=== PATIENT | female | born 1960 | race Caucasian/White ===

== ENCOUNTER 2023-08-15 10:59 | Outpatient (CLI) | payer BC, SELFPAY ==
--- NOTE | ~2023-08-15 | DEXA_ITS ---
Bone Density Report Name: SOPHY BOYD Age: 62 Sex: Female Ethnicity: White Date of : 1960 Indication: postmenopausal; screening for osteoporosis; parental hip fracture; prior fracture; Referring Provider: DIDIER WELLS Study: Bone densitometry was performed. Exam Date: August 15, 2023 Accession number: [id number] Bone Density: Region BMD T-score Z-score Classification AP Spine(L1-L4) 0.819 -2.1 -0.6 Osteopenia Femoral Neck (Left) 0.514 -3.0 -1.7 Osteoporosis Total Hip (Left) 0.697 -2.0 -1.0 Osteopenia Femoral Neck (Right) 0.532 -2.9 -1.5 Osteoporosis Total Hip (Right) 0.691 -2.1 -1.0 Osteopenia Total Hip Mean 0.694 -2.1 -1.0 Osteopenia World Health Organization criteria for BMD impression classify patients as: Normal (T-score at or above -1.0), Osteopenia (T-score between -1.0 and -2.5), or Osteoporosis (T-score at or below -2.5). 10-year Fracture Risk: FRAX not reported because: Some T-score for Spine Total or Hip Total or Femoral Neck at or below -2.5 Clinical Information Provided by Patient: Has had a low trauma fracture Parent has had a hip fracture Patient maximum height was 65.5 Menopause Age: 43 Drinks caffeinated beverages Onset of menses at age 14 Number of children 0 Impression: The patient has established osteoporosis, based on the Left Femoral Neck T-score and the existence of a prior fracture. The patient has risk factors, including: parental hip fracture, previous fracture. Discussion: HIGH RISK OF FRACTURE. BONE DENSITY IS UNDESIRABLY LOW AT ONE OR MORE SKELETAL SITES, CONSISTENT WITH POSTMENOPAUSAL OSTEOPOROSIS. This patient's lowest T-score, in a patient who has previously fractured, meets the World Health Organization's (WHO) criteria for severe osteoporosis. In untreated patients, the risk of osteoporotic fracture increases approximately two-fold for each 1.0 SD decrease in T-score. Low bone density is not the only risk factor for fracture; also consider factors such as patient's age, frailty or poor health, risk of falling, risk of injury, previous osteoporotic fracture, family history of osteoporosis, cigarette smoking, low body weight, etc. Not everyone with low bone mineral density has osteoporosis; osteomalacia and other metabolic bone disorders should also be considered. Patients who have osteoporosis should be evaluated for specific diseases and conditions (secondary causes) that may cause or contribute to bone loss. The [place] [employer]ocrinologists (AACE) and National Osteoporosis Foundation (NOF) recommend pharmacologic intervention for all postmenopausal women whose T-score is in this range. The patient should follow a healthful lifestyle (good nutrition with adequate calcium and vitamin D, and appropriate weight-bearing exercise).
== END 2023-08-15 11:00 | disposition home or self-care (01) ==
LOC: ANHIMG 11:05
PROVIDERS: Visit Provider Obstetrics & Gynecology
DX: Z78.0 Asymptomatic menopausal state (principal); M81.0 Age-related osteoporosis without current pathological fracture; M85.89 Other specified disorders of bone density and structure, multiple sites
CPT/HCPCS: 77080

== ENCOUNTER 2023-10-02 15:43 | Outpatient (CLI) | payer BC, SELFPAY ==
--- NOTE | ~2023-10-02 | MM_ITS ---
EXAMINATION: MM screening martin BI w eleazar HISTORY: Screening mammogram TECHNIQUE: Craniocaudal and mediolateral oblique 3-D tomosynthesis images were obtained and synthetic 2-D images were generated. CAD analysis was submitted and interpreted. COMPARISON: No prior mammogram is available for comparison at this institution. BREAST PARENCHYMAL COMPOSITION: There are scattered areas of fibroglandular density. FINDINGS: There is no evidence of suspicious mass, calcification, or architectural distortion to sugg est malignancy in either breast. IMPRESSION: 1. No mammographic evidence of malignancy. 2. Recommend routine screening mammography in one year. BI-RADS Category 1: Negative Reviewed, dictated and finalized at location A. 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
== END 2023-10-02 15:44 | disposition home or self-care (01) ==
PROVIDERS: Visit Provider Obstetrics & Gynecology
DX: Z12.31 Encounter for screening mammogram for malignant neoplasm of breast (principal)
CPT/HCPCS: 77063; 77067

== ENCOUNTER 2025-06-23 16:02 | Outpatient (CLI) | payer BC, SELFPAY ==
--- NOTE | ~2025-06-23 | CT_ITS ---
EXAMINATION: CTA chest PE protocol DATE: 06/23/2025 17:16 CDT INDICATION: Tachycardia. Atypical chest pain. TECHNIQUE: Computed tomographic angiography (CTA) of the chest was performed with 100 mL Omnipaque-350 intravenous contrast. The dose-length product was 173.46 mGy-cm. Maximum intensity projection 3D-reconstructions of the aorta and other arteries were constructed by the technologist on a separate workstation. COMPARISON: None. FINDINGS: Normal caliber aorta without aneurysm or dissection. Study is technically adequate without evidence for pulmonary embolism. No thoracic lymphadenopathy. Heart size normal. No significant pleural or pericardial effusion. The upper abdomen is unremarkable. No focal airspace consolidation. No endobronchial lesions. No pneumothorax. Mild thoracic spondylosis. No acute osseous abnormality. No focal lytic or blastic lesions. IMPRESSION: 1. No acute cardiopulmonary disease. Reviewed, dictated and finalized at location O.
--- OUTSIDE RECORDS SUMMARY | 2025-06-23 14:20 | XMS_ITS | Encounter Summary ---
Author Organization [facility] Address [address] [place] [address] Care Team Providers Care Poultry Raiser Name Role Phone Geronimo Burgos DO Primary Care Provider + Reason for Referral * Imaging (Emergency) - Closed Specialty Diagnoses / Procedures Referred By Berenice ruiz Referred To Contact RADIOLOGY Diagnoses Tachycardia Atypical chest pain Procedures CTA CHEST Geronimo Burgos DO [address] [place] [address] Phone: tel: fax: Referral ID Status Reason Start Date Expiration Date Visits Re quested Visits Authorized [id number] Closed 06/23/2025 06/24/2026 1 1 Reason for Visit * Reason Comments Follow Up Patient is here for a 4 month follow up. Anxiety Osteoporosis Abnormal Lab Results Leukocytosis Encounter Details Date Type Department Care Team (Late st Contact Info) Description 06/23/2025 2:20 PM CDT Office Visit [facility] - [place] [address] [place] [address] Geronimo Burgos DO [address] [place] [address] Follow Up (Patient is here for a 4 month follow up.); Anxiety; Osteoporosis; Abnormal Lab Results (Leukocytosis) Social History Tobacco Use Types Packs/Day Years Used Date Smoking Tobacco: Never Passive Smoke Exposure: Past Smokeless Tobacco: Never Tobacco Cessation:Counseling Given: No Alcohol Use Standard Drinks/Week Comments Not Currently 0 (1 standard drink = 0.6 oz pur e alcohol) holidays/ on occasion PHQ-2 Answer Date Recorded Patient Health Questionnaire-2 Score 0 02/15/2025 Comments No Sex and Gender Information Value Date Recorded Sex Assigned at Female 02/15/2025 3:18 PM CDT Legal Sex Female 5:48 PM 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 [employer] Gender Identity Female 02/15/2025 3:18 PM CDT Sexual Orientation Not on file Occupation Industry Job Start Date Job End Date Not on file Not on file Not on file Not on file documented as of this encounter Last Filed Vital Signs Vital Sign Reading Time Taken Comments Blood Pressure 148/88 06/23/2025 2:35 PM CDT Pulse 102 06/23/2025 2:35 PM CDT Temperature 36.7 C (98.1 F) 06/23/2025 2:26 PM CDT Respiratory Rate - - Oxygen Saturation 98% 06/23/2025 2:26 PM CDT Inhaled Oxygen Concentration - - Weight 59.3 kg (130 lb 11.8 oz) 06/23/2025 2:26 PM CDT Height 165.1 cm (5' 5) 06/23/2025 2:26 PM CDT Body Mass Index 21.76 06/23/2025 2:26 PM CDT documented in this encounter Progress Notes * Geronimo Burgos, - 06/23/2025 2:20 PM CDTAssociated Order(s): ECG Review/Interpret Only Post-Procedure Diagnose(s): Tachycardia; Atypical chest pain Images from the original note were not included. GENERAL OFFICE VISIT Encounter Date: 06/23/2025 Chief Complaint: 64-year-old female presents for Follow Up (Patient is here for a 4 month follow up.), Anxiety, Osteoporosis, and Abnormal Lab Results (Leukocytosis) HPI: Pt noted chest pain that occurred yesterday with a heat sensation and atypical sensation in her jaw. It has occurred at rest but anxious at the time. Pt's BP and HR is elevated today. She states her HR has been elevated for the past week. She states she has noticed some PVC's on her assessment. It has done this about 1-2 times in the past week. Pt has noticed increased anxiety symptoms recently. Pt has been evaluated for PVC's around 2021. She states she has had similar symptoms a few times over the past year at night. She has noticed issues with sleeping as well. She tried to take melatonin without significant benefit as well as herbal teas. Pt did have some ankle swelling in recent weeks with a trip to [place], which she attributed to lifestyle choices. Pt is asking for cold sore medications. She has been on acyclovir previously. Review of Systems Constitutional: Negative for fever. Gastrointestinal: Negative for abdominal pain. Musculoskeletal: See HPI Psychiatric/Behavioral: See HPI Patient Active Problem List Diagnosis Irritable bowel syndrome with both constipation and diarrhea Grade III hemorrhoids REJI (generalized anxiety disorder) Age-related osteoporosis without current pathological fracture Past Medical History[1] Past Surgical History[2] Family History[3] Social History[4] Immunization History Administered Date(s) Administered Influenza (Generic) 08/09/2012, 08/12/2013 MODERNA COVID-19 (12+) MRNA, LNP-S, PF, 100 MCG/ 0.5 ML DOSE 05/17/2021 Current Outpatient Medications Medication Sig Dispense Refill Calcium Carb-Cholecalciferol (CALCIUM CARBONATE-VITAMIN D3 OR) Take 1 tablet by mouth 3 (three) times daily. diphenhydrAMINE-APAP (TYLENOL PM) 25-500 MG Tab tablet Take 1 tablet by mouth nightly as needed. FOR SLEEP Multiple Vitamin (MULTI-VITAMIN) tablet Take 1 tablet by mouth daily. sertraline (ZOLOFT) 100 MG tablet Take 2 tablets (200 mg total) by mouth daily. 180 tablet 3 valACYclovir (VALTREX) 1 g tablet Take 2 tablets twice daily for 1 day at first sign of reoccurrence 12 tablet 1 No current facility-administered medications for this visit. Review of patient's allergies indicates: Allergen Reactions Hyoscyamine Other (see comment) Confusion Morphine Hives and Rash Propoxyphene Other (see comment) Tongue spasm Sulfa Antibiotics Hives and Itching Objective: Filed Vitals: 06/23/25 1426 06/23/25 1435 BP: (!) 146/90 (!) 148/88 Pulse: 100 (!) 102 Temp: 98.1 ??F (36.7 ??C) TempSrc: Temporal SpO2: 98% Weight: 59.3 kg (130 lb 11.8 oz) Height: 1.651 m (5' 5) Physical Exam Vitals and nursing note reviewed. HENT: Head: Normocephalic and atraumatic. Right Ear: External ear normal. Left Ear: External ear normal. Eyes: Conjunctiva/sclera: Conjunctivae normal. Cardiovascular: Rate and Rhythm: Regular rhythm. Tachycardia present. Heart sounds: Normal heart sounds. No murmur heard. No friction rub. No gallop. Pulmonary: Effort: Pulmonary effort is normal. No respiratory distress. Breath sounds: Normal breath sounds. No wheezing or rales. Abdominal: Palpations: Abdomen is soft. Tenderness: There is no abdominal tenderness. Musculoskeletal: Cervical back: Neck supple. Lymphadenopathy: Cervical: No cervical adenopathy. Neurological: General: No focal deficit present. Mental Status: She is alert. Gait: Gait normal. Psychiatric: Mood and Affect: Mood normal. ECG Review/Interpret Only Date/Time: 06/23/2025 2:20 PM Performed by: Geronimo Burgos DO Authorized by: Geronimo Burgos DO Previous ECG: no previous ECG available Rhythm: sinus tachycardia Ectopy: PVCs Rate: tachycardic QRS axis: normal Conduction: conduction normal ST Segments: ST segments normal T Waves: T waves normal Other: no other findings Clinical impression: abnormal ECG Assessment & Plan: Christiano was seen today for follow up, anxiety, osteoporosis and abnormal lab results. Diagnoses and all orders for this visit: Tachycardia - EKG WELCHALLEN ACQUIRED - CTA CHEST; Future Recurrent cold sores - valACYclovir (VALTREX) 1 g tablet; Take 2 tablets twice daily for 1 day at first sign of reoccurrence Atypical chest pain - CTA CHEST; Future REJI (generalized anxiety disorder) Other orders - ECG Review/Interpret Only Discussion/Summary: Concern for possible PE given consistent tachycardia today on auscultation and ECG tracing and atypical chest pain that is more likely associated with anxiety related but is not always consistent with this. Will order CTA chest today to further evaluate. May consider benzodiazepine or other agent depending upon results of above testing. For cold sores, will send out Valtrex today. Will dictate f/u based upon above results. Pt and v/u. Geronimo Burgos DO [1] Past Medical History: Diagnosis Date Generalized anxiety disorder Osteoporosis Ulnar neuropathy of left upper extremity 05/26/2024 [2] Past Surgical History: Procedure Laterality Date EXPLORE PARATHYROID GLANDS 2022 Partial removal, still intact FOREARM/WRIST SURGERY UNLISTED Left 01/26/2024 SCREENING COLONOSCOPY 03/2025 benign polyp removed, repeat 3-5 years SPINAL FUSION,ANT,EA ADNL LEVEL C-4/5, 5/6 [3] Family History Problem Relation Name Age of Onset COPD Mother Heart Disease Mother Cancer Father colon cancer and lung cancer Diabetes Brother Kidney Disease Brother Heart Disease Brother Breast Cancer Paternal Aunt 80 [4] Social History Tobacco Use Smoking status: Never Passive exposure: Past Smokeless tobacco: Never Vaping Use Vaping status: Never Used Substance Use Topics Alcohol use: Not Currently Comment: holidays/ on occasion Drug use: Never documented in this encounter Plan of Treatment Scheduled Orders Name Type Priority Associated Diagnoses Orde r Schedule CTA CHEST CT STAT Tachycardia Atypical chest pain Expected: 06/23/2025, Expires: 06/23/2026 documented as of this encounter Procedures Procedure Name Priority Date/Time Associated Diagnosis Comments ELECTROCARDIOGRAM (NON MIDMARK ACQUIRED) Routine 06/23/2025 3:02 PM CDT Tachycardia EVENT RECORDER (ECG) UP TO 30 DAYS REVIEW/INTERP Routine 06/23/2025 2:20 PM CDT Tachycardia Atypical chest pain documented in this encounter Results * EKG WELCHALLEN ACQUIRED (06/23/2025 3:02 PM CDT) 06/23/2025 3:02 PM CDT Narrative [facility] - 06/23/2025 3:19 PM CDT [facility] [address] [place] [address] Test Date: 2025-06-23 Pat Name: CHRISTIANO VILLEDA Department: 171 Room: Gender: Female 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: : 1960 Requested By: GERONIMO BURGOS Order Number: [id number] Reading MD: Geronimo Burgos Measurements Intervals [place] Rate: 100 P: 44 NV: 138 QRS: 25 QRSD: 86 T: 59 QT: 351 QTc: 454 Interpretive Statements SINUS TACHYCARDIA PVC noted ABNORMAL RHYTHM ECG Procedure Note Geronimo Burgos DO - 06/23/2025 [facility] [address] [place] [address] Test Date: 2025-06-23 Pat Name: CHRISTIANO VILLEDA Department: 171 Room: Gender: Female 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: : 1960 Requested By: GERONIMO BURGOS Order Number: [id number] Reading MD: Geronimo Burgos Measurements Intervals [place] Rate: 100 P: 44 NV: 138 QRS: 25 QRSD: 86 T: 59 QT: 351 QTc: 454 Interpretive Statements SINUS TACHYCARDIA PVC noted ABNORMAL RHYTHM ECG us Geronimo Burgos DO PROCEDURES-ORDERABLE NO CHARGE Final Result [facility] * ECG Review/Interpret Only (06/23/2025 2:20 PM CDT) Geronimo Amezcua DO - 06/23/2025 2:20 PM CDT Geronimo Burogs DO 06/23/2025 3:40 PM ECG Review/Interpret Only Date/Time: 06/23/2025 2:20 PM Performed by: Geronimo Burgos DO Authorized by: Geronimo Burgos DO Previous ECG: no previous ECG available Rhythm: sinus tachycardia Ectopy: PVCs Rate: tachycardic QRS axis: normal Conduction: conduction normal ST Segments: ST segments normal T Waves: T waves normal Other: no other findings Clinical impression: abnormal ECG Geronimo Burgos DO ECG ORDERABLES Final Re sult documented in this encounter Visit Diagnoses Diagnosis Tachycardia- Primary Tachycardia, unspecified Recurrent cold sores Herpes simplex without mention of complication Atypical chest pain Other chest pain REJI (generalized anxiety disorder) Generalized anxiety disorder documented in this encounter Care Teams Poultry Raiser Relationship Specialty Start Date End Date Geronimo Burgos, [address] [place] [phone] PCP - General FAMILY PRACTICE 02/15/25 documented as of this encounter
--- OUTSIDE RECORDS SUMMARY | 2025-06-23 16:06 | XMS_ITS | Clinical Summary ---
Author Organization [facility] Address [address] [facility] [address] [facility] [place] [address] Care Team Providers Care Build Master Name Role Phone Meño Mullins DO Primary Care Provide r Allergies Active Allergy Reactions Criticality Noted Date Comments Morphine Rash Medium 02/20/2011 Propoxyphene N-Acetaminophen Other (See comments) Low 12/16/2013 Tongue spasm Sulfa (Sulfonamide Antibiotics) Itching Low 02/20/2011 Medications sertraline (ZOLOFT) 100 mg tabletIndicatio ns:Anxiety with Depression Take 2 tablets (200 mg total) by mouth nightly Active CALCIUM CARBONATE-VITAM IN D3 ORALIndications :Vitamin D Deficiency Take 1 tablet by mouth 3 (three) times a day 600 mg of calcium and 600 mg Vitamin D3 = 3x a day Active multivitamin tabletIndicatio ns:Vitamin Deficiency Prevention Take 1 tablet by mouth nightly Active diphenhydrAMINE -acetaminophen (TYLENOL PM) 25-500 mg tabletIndicatio ns:Pain Take 1 tablet by mouth nightly as needed for sleep Active meloxicam (MOBIC) 15 mg tablet Take 1/2 tablet two times daily. 30 tablet 07/07/2024 Active sodium, potassium & mag sulfates (Suprep Bowel Prep Kit) 17.5-3.13-1.6 gram recon solnIndications :Bowel Evacuation Drink first half of prep at 6:00 pm the night before procedure. Drink second half of prep 4 hours prior to leaving home for procedure. 354 mL 02/24/2025 Active Active Problems Problem Noted Date Diagnosed Date Grade III hemorrhoids 02/11/2025 Irritable bowel syndrome wit h both constipation and diarrhea 02/11/2025 Ulnar neuropathy of left upper extremity 024 Screening for malignant neoplasm of colon 2017 Overview (08/20/2018): Added automatically from request for surgery [id number] Encounters Date Type Department Care Team Description 05/13/2025 9:05 AM CDT Anesthesia Event [facility] Endoscopy at [address] [address] Hayder Quiñones MD Lyerla, Christina M., CRNA 05/13/2025 9:02 AM CDT - 05/13/2025 9:47 AM CDT Surgery [facility] Endoscopy at [address] [address] Peterson Cameron MD COLON BIOPSY 05/13/2025 8:14 AM CDT - 05/13/2025 10:30 AM CDT Hospital Encounter [facility] Endoscopy at [address] [address] Peterson Cameron MD Screening for malignant neoplasm of colon Discharge Disposition: Discharge to home or self care 05/06/2025 [facility] [address] [place] [address] 2nd [address] [place] [address] Carina, Lindsay, RMA Colonoscopy from Last 3 Months Surgical History Surgery Date Site/Laterality Comments COLONOSCOPY W/ BIOPSIES AND POLYPECTOMY 10/14/2015 - 10/13/2016 CERVICAL FUSION 10/14/2004 - 10/13/2005 plates in neck, fused neck at C4, C5, and C6 ANKLE SURGERY 10/14/2012 - 10/13/2013 Right COLONOSCOPY every 3 years; last one in 2022 WISDOM TOOTH EXTRACTION PARATHYROIDECTOMY 10/14/2020 - 10/13/2021 Medical History Medical History Date Comments Colon polyp Depression Anxiety Motion sickness PONV (postoperative nausea and vomiting) Osteoporosis Parathyroid abnormality IBS (irritable bowel syndrome) Family History Medical History Relation Name Comments Diabetes Brother Luis Miguel Rouse Prostate cancer Brother Luis Miguel Rouse Cancer Father Luis Miguel Rouse Lung cancer Father Luis Miguel Rouse Family his tory of lung cancer - (Added by TW Conv) Lung disease Father Luis Miguel Rouse Bladder Cancer Maternal Grandmother Coronary artery disease Mother Dawn Rouse Heart attack Mother Dawn Rouse Heart failure Mother Dawn Rouse Lung disease Mother Dawn Rouse Peripheral vascular disease Mother Dawn Rouse Stroke Mother Dawn Rouse Breast cancer Mother's Sister Relation Name Status Comments Brother Luis Miguel Rouse Father Luis Miguel Rouse Maternal Grandmother Mother aDwn Rouse Mother's Sister Social History Tobacco Use Types Packs/Day Years Used Date Smoking Tobacco: Never Passive Smoke Exposure: Never Smokeless Tobacco: Never Tobacco Cessation:Counseling Given: Not Answered Alcohol Use Standard Drinks/Week Comments Yes 0 (1 standard drink = 0.6 oz pur e alcohol) AUDIT-C Answer Date Recorded Q1: How often do you have a drink containing alc ohol? Monthly or less 05/13/2025 Q2: How many drinks containi ng alcohol do you have on a typical day when you are drinking? 1 or 2 05/13/2025 Q3: How often do you have si x or more drinks on one occasion? Never 05/13/2025 Personal Safety Answer Date Recorded Have you ever been in or are you currently in a harmful physical or emotional relationship or is someone making you feel afraid or unsafe? Denies 05/13/2025 Comments No Sex and Gender Information Value Date Recorded Sex Assigned at Not on file Legal Sex Female 12:32 PM [employer] Gender Identity Not on file Sexual Orientation Not on file Obstetrics History Last Filed Vital Signs Vital Sign Reading Time Taken Comments Blood Pressure 108/78 05/13/2025 10:10 AM CDT Pulse 72 05/13/2025 10:10 AM CDT Temperature 36 C (96.8 F) 05/13/2025 9:50 AM CDT Respiratory Rate 20 05/13/2025 10:10 AM CDT Oxygen Saturation 97% 05/13/2025 10:10 AM CDT Inhaled Oxygen Concentration - - Weight 59 kg (130 lb) 05/13/2025 8:30 AM CDT Height 162.6 cm (5' 4) 05/13/2025 8:30 AM CDT Body Mass Index 22.31 05/13/2025 8:30 AM CDT Plan of Treatment Health Maintenance Due Date Last Done Comments Cervical Cancer Screening 1960 Depression Screening 1960 DTaP/Tdap/Td Vaccine (1 - Tdap) 1972 Hepatitis B Screening 12/26/1979 Regular Well Visit/Exam 18-64 12/26/1979 Zoster Vaccine (1 of 2) 12/26/2011 Breast Cancer Screening-Mammogram 05/11/2023 05/11/2022, 05/11/2022 Covid-19 Vaccine (2 - 2024- season) 2025 05/17/2021 Influenza Vaccine (#1) 2025 08/12/2013, 2011 Colon Cancer Screening-Colonoscopy 05/13/2035 05/13/2025, 04/12/2022, 11/14/2018, Additional history exists Hepatitis C Screening Completed 06/07/2017 Colon Cancer Screening-CT Colonography Discontinued 05/13/2025, 04/12/2022, 11/14/2018, Additional history exists Colon Cancer Screening-DNA Stool Discontinued 05/13/2025, 04/12/2022, 11/14/2018, Additional history exists Colon Cancer Screening-FIT Discontinued 05/13, 04/12/2022, 11/14/2018, Additional history exists Colon Cancer Screening-Sigmoidoscopy Discontinued 05/13/2025, 04/12/2022, 11/14/2018, Additional history exists Pneumococcal vaccine <65 Aged Out No longer eligible based on patient's age to complete this topic Procedures Procedure Name Priority Date/Time Associated Diagnosis Comments SURGICAL PATHOLOGY Routine 05/13/2025 9: 35 AM CDT Screening for malignant neoplasm of colon COLON BIOPSY 05/13/2025 9:06 AM CDT Screening for malignant neoplasm of colon COLONOSCOPY 05/13/2025 8:55 AM CDT HEPATITIS C ANTIBODY Routine Gen Lab 06/07/2017 11:10 AM CDT from Last 3 Months or Most Recently Relevant to Health Maintenance Results * Surgical pathology (05/13/2025 9:35 AM CDT) Tissue (Polyp(s), colon/colorectal, esophageal, gastric) 05/13/2025 9:35 AM CDT Narrative PATHOLOGY [facility] - 05/14/2025 2:55 PM CDT EPIC results best viewed via link to PDF [facility] [place] [address] Note to Patients: This report may contain a detailed description of human tissue sent by a health care provider to the laboratory for pathologic evaluation. The content of this report is essential for diagnosis and may provide important critical findings. This information may be unfamiliar to patients to review without a medical professional present. It is advised that the patient review this report in the presence of a health care provider who can answer questions and explain the details. SURGICAL PATHOLOGY REPORT FINAL Patient Name: CHRISTIANO VILLEDA Gender: F : 1960 (Age: 64) Address: [address] [place] [address] Hospital #: [id number] Taken:05/13/2025 Received:05/13/2025 Reported: 05/14/2025 Patient Type: [facility] Service: Surgery Location: Physician(s): Sara Joya D.O. Diagnosis: A. Large bowel, descending colon polyp, biopsy - Normal colonic mucosa (additional levels reviewed) kxb/05/14/2025 14:55 By this signature, I attest that the above diagnosis is based upon my personal examination of the slides(and/or other material indicated in the diagnosis). Muriel Hicks MD Report Electronically Reviewed and Signed Out By Muriel Hicks MD 05/14/2025 14:55:29 Usha Monroy M.D. History: The patient is a 64-year-old woman presenting for screening for malignant neoplasm of colon. Operative procedure: Colon biopsy. Specimen(s) Received: A: Descending colon polyp Gross Description: Received in formalin, labeled with the patient s identifiers and descending colon polyp and consists of three heart-brown fragment(s) of soft tissue measuring 0.1-0.8 cm each in greatest dimension. Filtered stained with eosin. The smallest fragment may not survive processing. Labeled A1. Jar 0. sxst/05/13/2025 16:49 PA(s): Becca Valle By this signature, I attest that the above diagnosis is based upon my personal examination of the slides(and/or other material). Addenda/Procedures The performance characteristics of some immunohistochemical stains, fluorescence in-situ hybridization tests and immunophenotyping by flow cytometry cited in this report (if any) were determined by the Surgical Pathology and Flow Cytometry Departments at [facility] as part of an ongoing cloth tester quality program and in compliance with federally mandated regulations drawn from the Clinical Laboratory Improvement Act of 1988 (CLIA '88). Some of these tests rely on the use of analyte specific reagents and are subject to specific labeling requirements by the US Food and Drug Administration. Such diagnostic tests may only be performed in a facility that is certified by the Department of Health and Human Services as a high complexity laboratory under CLIA '88. The FDA has determined that such clearance or approval is not necessary. This test is used for clinical purposes. It should not be regarded as investigational or for research. Nevertheless, federal rules concerning the medical use of analyte specific reagents require that the following disclaimer be attached to the report: This test was developed and its performance characteristics determined by the Surgical Pathology and Flow Cytometry Departments of [facility]. It has not been cleared or approved by the U. S. Food and Drug Administration. IMAGES AND SCANNED DOCUMENTS, IF INCLUDED, ONLY VIEWABLE IN PDF VERSION OF REPORT us Peterson Cameron MD LAB PATHOLOGY ORDERABLES Fin al Result PATHOLOGY [facility] 3rd Floor [place], [place] [phone] * Colonoscopy (05/13/2025 8:55 AM CDT) Anatomical Region Laterality Modality Other Narrative Procedure Note Peterson Cameron MD - 05/13/2025 8:55 AM CDT [facility] Patient Name: Christiano Villeda Procedure Date: 05/13/2025 8:55 AM Date of : 1960 Admit Type: Outpatient Age: 64 Gender: Female Attending MD: Peterson Cameron M.D., Room: [facility] ENDOSCOPY ROOM 02 Note Status: Finalized Procedure: Colonoscopy Indications: High risk colon cancer surveillance: Personalhistory of colonic polyps, Last colonoscopy: 2021 Referring MD: Meño Mullins D.O. Providers: Peterson Cameron M.D. Medicines: Propofol per Anesthesia Complications: No immediate complications. Estimated blood loss: Minimal. Estimated Blood Loss: Estimated blood loss was minimal. Procedure: Pre-Anesthesia Assessment: - Immediately prior to administration ofmedications, the patient was re-assessed for adequacy to receive sedatives. - Sedation was administered by an anesthesia professional. General anesthesia was attained. - The heart rate, respiratory rate, oxygen saturations, blood pressure, adequacy of pulmonary ventilation, and response to care were monitored throughout the procedure. - The physical status of the patient wasre-assessed after the procedure. The benefits, risks and alternatives of theprocedure and sedation were discussed and informed consentwas obtained. All questions were answered. Please referto the signed informed consent document in the medical record. The scope was passed under direct vision.The Colonoscope was introduced through the anus and advanced to the the cecum, identified byappendiceal orifice and ileocecal valve. The colonoscopy was performed with ease. The patient tolerated the procedure fairly well. The quality of the bowel preparation was excellent. The quality of the bowel preparation was evaluated using the BBPS (BostonBowel Preparation Scale) with scores of: Right Colon = 3, Transverse Colon = 3 and Left Colon = 3 (entiremucosa seen well with no residual staining, smallfragments of stool or opaque liquid). The total BBPS score equals 9. The bowel preparation used was SUPREP via split dose instruction. Findings: A 3 mm polyp was found in the descending colon. The polyp was removed with a cold biopsy forceps. Resection and retrieval were complete. Estimated blood loss was minimal. Impression: - One 3 mm polyp in the descending colon, removedwith a cold biopsy forceps. Resected and retrieved. Recommendation: - Await pathology results. - Repeat colonoscopy in 5 years for surveillance. Attending Participation: I personally performed the entire procedure. Electronically signed by Dr.Matthew Nisha M.D. Peterson Cameron M.D. 05/13/2025 9:41:42 AM . Number of Addenda: 0 Note Initiated On: 05/13/2025 8:55 AM Recognized by the [place] for promoting quality in endoscopy us Peterson Cameron MD ENDOSCOPY PROCEDURES Final R esult * Hepatitis C antibody (06/07/2017 11:10 AM CDT) Hep C Ab Nonreactive Nonreactive DARYL DAMIAN Comment: Interpretive Data Positive and greyzone results should be confirmed by a molecular method. If positive or greyzone, a second separately collected sample should be submitted for Hepatitis C Virus RNA. Detection and Quantitation by Real-Time Reverse Metal Cabinet Finisher-PCR.Current Interpretive data was last revised on 2017. Blood specimen (specimen) 06/07/2017 11:10 AM CDT 06/07/2017 2:37 PM CDT Azul Mckinley MD LAB MICROBIO LOGY - GENERAL ORDERABLES Edited Result - Final [facility] Department [place] [address] from Last 3 Months or Most Recently Relevant to Health Maintenance [place] [employer] [place] [employer] [place] Advance Directives For more information, please contact: [phone] * Full Code (Latest Code Status on File) Date Activated Date Inactivated Comments 05/13/2025 8:37 AM 05/13/2025 2:31 PM * Full Code Date Activated Date Inactivated Comments 04/12/2022 7:37 AM 04/12/2022 2:08 PM * Full Code Date Activated Date Inactivated Comments 11/11/2020 7:52 PM 11/12/2020 7:57 PM Care Teams Build Master Relationship Specialty Start Date End Date Meño Mullins DO [address] [place] [address] PCP - General Family Medicine 02/17/25
--- OUTSIDE RECORDS SUMMARY | 2025-06-23 16:06 | XMS_ITS | Patient Health Record ---
Author Organization [facility] Address [address] [place] [address] Support Name Relationship Address Phone SOPHY TROTTER Guarantor Unknown [phone] Reason For Referral No Information Plan Of Treatment No Information
--- OUTSIDE RECORDS SUMMARY | 2025-06-23 16:06 | XMS_ITS | Encounter Summary ---
Author Organization [facility] Address [address] [place] [address] Care Team Providers Care Machine Maintenance Repairer Name Role Phone Meño Mullins DO Primary Care Provider + Encounter Details Date Type Department Care Team (Latest Contact Info) Description 06/23/2025 Travel Social History Tobacco Use Types Packs/Day Years Used Date Smoking Tobacco: Never Passive Smoke Exposure: Past Smokeless Tobacco: Never Alcohol Use Standard Drinks/Week Comments Not Currently 0 (1 standard drink = 0.6 oz pur e alcohol) holidays/ on occasion PHQ-2 Answer Date Recorded Patient Health Questionnaire-2 Score 0 02/15/2025 Comments No Sex and Gender Information Value Date Recorded Sex Assigned at Female 02/15/2025 3:18 PM CDT Legal Sex Female 5:48 PM [employer]IC[employer] Gender Identity Female 02/15/2025 3:18 PM CDT Sexual Orientation Not on file Occupation Industry Job Start Date Job End Date Not on file Not on file Not on file Not on file documented as of this encounter Plan of Treatment Not on file documented as of this encounter Visit Diagnoses Not on filedocumented in this encounter Care Teams Machine Maintenance Repairer Relationship Specialty Start Date End Date Meño Mullins DO [address] [place] [address] PCP - General FAMILY PRACTICE 02/15/25 documented as of this encounter
--- OUTSIDE RECORDS SUMMARY | 2025-06-23 16:06 | XMS_ITS | Encounter Summary ---
Author Organization 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 Gender Identity Not on file Sexual Orientation Not on file documented as of this encounter Plan of Treatment Not on file documented as of this encounter Procedures Procedure Name Priority Date/Time Associated Diagnosis Comments VASCULAR LABORATORY REPORT 08/01/2017 3:23 PM CDT documented in this encounter Results * VASCULAR LABORATORY REPORT (08/01/2017 3:23 PM CDT) Anatomical Region Laterality Modality Ultrasound us Provider Scanning CV VASCULAR PROCEDURES Final R esult documented in this encounter Visit Diagnoses Not on filedocumented in this encounter Care Teams Tallow Pumper Relationship Specialty Start Date End Date Gabe Urbina MD [address] [place] [address] PCP - General 05/20/17 02/16/25 Meño Mullins DO [address] [place] [address] PCP - General Family Medicine 02/17/25 documented as of this encounter
--- OUTSIDE RECORDS SUMMARY | 2025-06-23 16:06 | XMS_ITS | Clinical Summary ---
Author Organization [facility] Address [address] [place] [address] Care Team Providers Care Denture Technician Name Role Phone Geronimo Burgos Primary Care Provider + Allergies Active Allergy Reactions Criticality Noted Date Comments Hyoscyamine Other (see comment) Medium 02/15/2025 Confusion Morphine Hives,Rash Medium 06/04/2005 Propoxyphene Other (see comment) Low 12/16/2013 Tongue spasm Sulfa Antibiotics Hives,Itching Low 05/04/2005 Medications diphenhydrAMINE -APAP (TYLENOL PM) 25-500 MG Tab tablet Take 1 tablet by mouth nightly as needed. FOR SLEEP Active Calcium Carb-Cholecalci ferol (CALCIUM CARBONATE-VITAM IN D3 OR) Take 1 tablet by mouth 3 (three) times daily. Active Multiple Vitamin (MULTI-VITAMIN) tablet Take 1 tablet by mouth daily. Active sertraline (ZOLOFT) 100 MG tabletIndicatio ns:REJI (generalized anxiety disorder) Take 2 tablets (200 mg total) by mouth daily. 180 tablet 3 5 Active valACYclovir (VALTREX) 1 g tabletIndicatio ns:Recurrent cold sores Take 2 tablets twice daily for 1 day at first sign of reoccurrence 12 tablet 1 5 Active Active Problems Problem Noted Date Diagnosed Date REJI (generalized anxiety disorder) 02/15/2025 Age-related osteoporosis wit hout current pathological fracture 02/15/2025 Irritable bowel syndrome wit h both constipation and diarrhea 02/11/2025 Grade III hemorrhoids 02/11/2025 Resolved Problems Problem Noted Date Diagnosed Date Resolved Date Ulnar neuropathy of left upper extremity 05/26/2024 02/15/2025 Encounters Date Type Department Care Team Description 06/23/2025 2:20 PM CDT Office Visit [facility] Family [facility] Internal Medicine [address] [id number] Geronimo Burgos, DO Follow Up (Patient is here for a 4 month follow up.); Anxiety; Osteoporosis; Abnormal Lab Results (Leukocytosis) 06/23/2025 Travel 05/13/2025 Scan [facility] Scanned, [facility] Colonoscopy Report (SCAN) from Last 3 Months Immunizations Immunization Administration Dates Next Due Influenza (Generic) 08/12/2013,08/09/2012 Family History Medical History Relation Comments Diabetes Brother Heart Disease Brother Kidney Disease Brother Cancer Father colon cancer and lung cancer COPD Mother Heart Disease Mother Breast Cancer Paternal Aunt Relation Status Comments Brother Father Mother Paternal Aunt Alive Social History Tobacco Use Types Packs/Day Years [...] PM CDT Legal Sex Female 5:48 PM [employer] Gender Identity Female 02/15/2025 3:18 PM CDT Sexual Orientation Not on file Occupation Industry Job Start Date Job End Date Not on file Not on file Not on file Not on file Last Filed Vital Signs Vital Sign Reading Time Taken Comments Blood Pressure 148/88 06/23/2025 2:35 PM CDT Pulse 102 06/23/2025 2:35 PM CDT Temperature 36.7 C (98.1 F) 06/23/2025 2:26 PM CDT Respiratory Rate 16 02/15/2025 3:20 PM CDT Oxygen Saturation 98% 06/23/2025 2:26 PM CDT Inhaled Oxygen Concentration - - Weight 59.3 kg (130 lb 11.8 oz) 06/23/2025 2:26 PM CDT Height 165.1 cm (5' 5) 06/23/2025 2:26 PM CDT Body Mass Index 21.76 06/23/2025 2:26 PM CDT Plan of Treatment Health Maintenance Due Date Last Done Comments Cervical Cancer Screening Pa p Smear (Age 30 to 64) Every 3 Years 1960 Annual Physical 1964 Cervical Cancer Screening Pa p with HPV Testing (Age 30 to 64) Every 5 Years 12/26/1991 COVID-19 Vaccine (2 - 2024-2 6 season) 2025 05/17/2021 Cervical Cancer Screening with HPV 02/15/2026 Postponed from 12/26/1991 (Going to Outside Clinic) DTaP, Tdap and Td Vaccines ( 1 - Tdap) 02/15/2026 Postponed from 12/25 (Patient Refused) Zoster Vaccines (1 of 2) 02/15/2026 Pos tponed from 12/26/2011 (Patient Refused) Pneumococcal Vaccine: 50+ Ye ars (1 of 1 - PCV) 02/16/2026 Postponed from 12/25 (Patient Refused) Mammogram Screening 05/23/2026 05/11/2022 Postpone d from 05/11/2024 (Awaiting Documentation) Colorectal Cancer Screening Colonoscopy (10 Years) 05/13/2035 05/13/2025 RSV Immunization or 60+ Years (1 - 1-dose 75+ series) 2036 PHQ-2 (Physician [place]) Completed 02/15/2025 Hepatitis C Completed 02/19/2025 Meningococcal B Vaccine Aged Out No l onger eligible based on patient's age to complete this topic Meningococcal Vaccine Aged Out No tiffanie varinder eligible based on patient's age to complete this topic RSV Immunizations Under 20 Months Aged Out No longer eligible based on patient's age to complete this topic Procedures Procedure Name Priority Date/Time Associated Diagnosis Comments ELECTROCARDIOGRAM (NON MIDMARK ACQUIRED) Routine 06/23/2025 3:02 PM CDT Tachycardia EVENT RECORDER (ECG) UP TO 30 DAYS REVIEW/INTERP Routine 06/23/2025 2:20 PM CDT Tachycardia Atypical chest pain COLONOSCOPY GENERIC (SCAN ORDER) 05/13/2025 HEPATITIS C ANTIBODY Routine 02/19/2025 11:35 AM CDT Annual physical exam Need for hepatitis C screening test Screening for lipid disorders Screening for endocrine, metabolic and immunity disorder MG SCREENING W AJ CATRACHITO DIGI Routine 05/11/2022 1:30 PM CDT Visit for screening mammogram from Last 3 Months or Most Recently Relevant to Health Maintenance Results * EKG WELCHALLEN ACQUIRED (06/23/2025 3:02 PM CDT) 06/23/2025 3:02 PM CDT Narrative [facility] - 06/23/2025 3:19 PM CDT [facility] [address] [place] [address] Test Date: 2025-06-23 Pat Name: CHRISTIANO VILLEDA Department: 171 Room: Gender: Female Welfare Service Aide: : 1960 Requested By: GERONIMO BURGOS Order Number: [id number] Reading MD: Geronimo Burgos Measurements Intervals [place] Rate: 100 P: 44 SC: 138 QRS: 25 QRSD: 86 T: 59 QT: 351 QTc: 454 Interpretive Statements SINUS TACHYCARDIA PVC noted ABNORMAL RHYTHM ECG Procedure Note Geronimo Burgos, - 06/23/2025 [facility] [address] [address] Test Date: 2025-06-23 Pat Name: CHRISTIANO VILLEDA Department: 171 Room: Gender: Female Welfare Service Aide: : 1960 Requested By: GERONIMO BURGOS Order Number: [id number] Reading MD: Geronimo Burgos Measurements Intervals [place] Rate: 100 P: 44 SC: 138 QRS: 25 QRSD: 86 T: 59 QT: 351 QTc: 454 Interpretive Statements SINUS TACHYCARDIA PVC noted ABNORMAL RHYTHM ECG Geronimo Burgos DO PROCEDURES-ORDERABLE NO CHARGE Final Result [facility] * ECG Review/Interpret Only (06/23/2025 2:20 PM CDT) Geronimo Amezcua DO - 06/23/2025 2:20 PM CDT Geronimo Burgos DO 06/23/2025 3:40 PM ECG Review/Interpret Only [...] Burgos DO ECG ORDERABLES Final Re sult * COLONOSCOPY GENERIC (SCAN ORDER) (05/13/2025) 05/13/2025 [facility] Scanned SCANNING Final Resu lt * HEPATITIS C ANTIBODY (02/19/2025 11:35 AM CDT) HEPATITIS C AB NON-REACTI VE NON-REACT JOHN 02/19/2025 8:43 PM CDT [facility] Comment: ANTIBODIES TO HCV NOT DETECTED. DOES NOT EXCLUDE THE POSSIBILITY OF EXPOSURE TO HCV. 02/19/2025 11:3 5 AM CDT Geronimo Burgos DO LABORATORY Final Re sult [facility] [address] [id number], [id number] * MG SCREENING W AJ CATRACHITO DIGI (05/11/2022 1:30 PM CDT) Anatomical Region Laterality Modality Breast Bilateral Mammography 05/11/2022 2:46 PM CDT Impressions 05/11/2022 2:50 PM CDT IMPRESSION: No interval features to suggest malignancy. In the absence of clinical symptoms, return for annual screening mammogram due in 1 year. RECOMMENDATION: Routine Screening, Bilateral in 1 year ASSESSMENT: ACR BI-RADS 2 - BENIGN FINDING(S) Ordered By: LUIS MIGUEL RODRIGUEZ Interpreted By: Valerie Ness MD, 05/11/2022 2:46 PM Narrative 05/11/2022 2:50 PM CDT EXAMINATION: BILATERAL SCREENING MAMMOGRAPHY Exam Date: 05/11/2022 1:15 PM CLINICAL INDICATION: 61 years of age female routine screening. Reported remote benign cyst aspiration. COMPARISON: Screening mammogram(s) 05/03, 04/02, 04/01 from [facility] TECHNIQUE: Digital CC & MLO views. Tomosynthesis imaging acquisition Study read with the assistance of a computer-aided detection system. TISSUE DENSITY: There are scattered areas of fibroglandular density. FINDINGS: Presence of scattered but nodular breast tissue pattern slightly decreases mammographic sensitivity. Fairly stable glandular pattern with similar asymmetric dense nodular patches relatively unchanged after accounting for differences in technique and involutional changes when compared to prior studies dating back 06/27. Given longevity with stability, this favors findings of low malignant potential at this time. Stable axillary lymph nodes compared to studies dating back 06/27. Few scattered calcifications No suspicious grouping of microcalcifications, architectural distortion, or new dominant suspicious nodule 3 dimensionally demonstrated in either breast. Luis Miguel Rodriguez MD MAMMO Final Result from Last 3 Months or Most Recently Relevant to Health Maintenance Insurance [facility] Care Teams Denture Technician Relationship Specialty Start Date End Date Geronimo Burgos DO [address] [place] [id number] PCP - General FAMILY PRACTICE 02/15/25
[2025-06-23 17:04] LABS: Estimated Glomerular Filt Rate > 60
== END 2025-06-23 16:03 | disposition home or self-care (01) ==
LOC: ANHIMG 16:04
PROVIDERS: PCP Student in an Organized Health Care Education/Training Program; Visit Provider Student in an Organized Health Care Education/Training Program
DX: R00.0 Tachycardia, unspecified (principal); R07.89 Other chest pain
CPT/HCPCS: 71275; Q9967